=== PATIENT | female | born 1975 | race Caucasian/White ===

== ENCOUNTER → 2024-01-25 20:16 | Outpatient (REF) | payer OTHER, SELFPAY | LOC: MRI 20:16 | PROVIDERS: ATTENDING PHYSICIAN Family Medicine; FAMILY PHYSICIAN Student in an Organized Health Care Education/Training Program | DX: M54.50 Low back pain, unspecified (principal); M54.6 Pain in thoracic spine | CPT/HCPCS: 72158; A9575 ==

== ENCOUNTER 2025-07-14 22:58 | Emergency (ER) | payer SELFPAY ==
[2025-07-14 23:01] VITALS: BP 126/74
--- NOTE | 2025-07-14 23:11 | ED.GENMED ---
History of Present Illness
General
Chief Complaint: Flank Pain
Time Seen by Provider: 07/14/25 23:10
History of Present Illness
History of Present Illness:
FOCUSED PAST MEDICAL HISTORY
- Has had a partial hysterectomy, appendectomy
REVIEW OF OLD RECORDS
- Patient had screening colonoscopy 2022 which polyps were removed
Note:
CHIEF COMPLAINT(S)
- Right-sided flank pain
HISTORY OF PRESENT ILLNESS
The patient is a 50-year-old female who presents with right-sided flank pain that began suddenly a few days ago. The pain has progressively worsened, especially with movement of the thoracolumbar spine. She describes the pain as not involving her
upper back or chest. The patient reports having taken 800 mg of ogcd-ypu-ofqnlpb ibuprofen earlier today, but it did not provide significant relief. She also experiences significant nausea and has unintentionally lost approximately 23 pounds over
the past three weeks due to decreased appetite and nausea. She denies any fever. The patient has a history of hysterectomy and therefore has not had menstrual periods since the procedure.
PHYSICAL EXAM
General: Appears uncomfortable.
Skin: Warm, dry.
Head: Normocephalic, atraumatic.
Neck: Supple, trachea midline.
Eye, Ears, Nose, Mouth, and Throat: Oral mucosa moist.
Cardiovascular: Normal peripheral perfusion, no edema.
Respiratory: Respirations are non-labored.
Gastrointestinal: Abdomen nondistended, no significant tenderness upon palpation.
Back: Pain localized to the right flank region, worsened by movement of the thoracolumbar spine.
Musculoskeletal: Normal range of motion, normal strength.
Neurological: Alert and oriented to person, place, time, and situation, no focal neurological deficit observed.
Psychiatric: Cooperative, appropriate mood and affect.
PROBLEM LIST
- Acute: Right flank pain, nausea, unintentional weight loss
PLAN
The patient was given an intravenous nonsteroidal anti-inflammatory drug (Ketorolac, branded as Toradol) for pain management. Additionally, a computed tomography scan (CT scan) of the abdomen and pelvis has been ordered to further evaluate the cause
of her flank pain. Consideration for narcotic pain management should the nonsteroidal anti-inflammatory drug be inadequate.
DIFFERENTIAL DIAGNOSIS
The Differential Diagnosis includes, in no particular order and is not limited to:
1. Nephrolithiasis
2. Pyelonephritis
3. Musculoskeletal strain or injury
4. Radiculopathy
5. Appendicitis
6. Abdominal aortic aneurysm
7. Pancreatitis
8. Hepatic causes such as cholelithiasis
9. Gastrointestinal disorders
10. Urinary tract infection
RADIOLOGY
- No clear sign of ureteral stone on CT imaging
LABS
- CBC and chemistries unremarkable, urinalysis unremarkable
SUMMARY OF ENCOUNTER
The patient, a 50-year-old female, was seen in the emergency department due to severe right-sided flank pain that developed suddenly a few days prior. The patient also presented with significant nausea and unintended weight loss. A CT scan of the
abdomen and pelvis was performed without contrast, ruling out nephrolithiasis as there was no evidence of kidney stones. Urinalysis revealed no signs of a kidney or urinary tract infection. The patients white blood cell count was normal. The pain
appears predominantly musculoskeletal, likely due to inflamed tissue in the muscles or around the rib cage and possibly related to existing SI joint issues she receives PRP injections for. The patient has a history of colonoscopy showing small
polyps but nothing significant. Management included pain control consideration and addressing nausea with a prescribed medication. The patient was advised to follow up with her primary care provider and a regulatory intern, especially if
gastrointestinal symptoms persist. Additionally, it was recommended to consider agpd-guh-jlkmhoj omeprazole for potential acid-related irritation. She also had diarrhea.
ASSESSMENT
The source of flank pain is likely musculoskeletal or related to existing SI joint issues. Nausea is pronounced, and gastrointestinal evaluation is warranted due to weight loss and reported symptoms of diarrhea. Further investigation by a
regulatory intern has been advised.
EMERGENCY TREATMENTS ADMINISTERED
No emergency medications were administered in the ER, but a prescription for nausea medication was arranged for pick-up.
PLAN
A prescription for nausea medication will be sent to the patients pharmacy. The patient is advised to follow up with her primary care physician and a regulatory intern for further assessment and management. Lmhq-bqi-apfgsei omeprazole is
recommended for potential acid-related irritation.
INDEPENDENT REVIEW OF LABS AND INTERPRETATION OF TESTS
- My independent review of the CT abdomen/pelvis shows no signs of nephrolithiasis or bony abnormalities.
- My independent review of the urinalysis shows no signs of infection or hematuria.
- My independent review of the white blood cell count is normal.
PATIENT EDUCATION AND COUNSELING
The patient was informed about the possible musculoskeletal nature of her pain and the lack of findings suggesting kidney stones or a urinary tract infection. The potential for gastrointestinal issues contributing to nausea was discussed, and the
patient was advised about the utility of acid-reducing medication like omeprazole.
FOLLOW-UP INSTRUCTIONS
The patient should follow up with her primary care provider, and consider a consultation with a regulatory intern for further evaluation of gastrointestinal symptoms and weight loss.
MEDICATION RECONCILIATION
Prescribed medication for nausea was sent to the patients preferred pharmacy. Mrrs-tmy-aiaqpmb omeprazole was recommended for potential acid irritation.
MEDICAL DECISION MAKING
- Number and Complexity of Problems Addressed: Chronic conditions affecting care include nausea, right flank pain, musculoskeletal strain, SI joint pain.
- DDx list includes: Nephrolithiasis, pyelonephritis, musculoskeletal strain, radiculopathy, appendicitis, abdominal aortic aneurysm, pancreatitis, hepatic causes, gastrointestinal disorders, urinary tract infection.
-Data:
Category 1
- Lab tests (urinalysis, white blood cell count) were reviewed.
- CT scan of abdomen/pelvis was independently interpreted.
Category 3
- Discussion of management included in-house consultation and the determination to prescribe nausea medication and recommend gastrointestinal follow-up.
-Risk: Consideration of Admission/Observation: Escalation of care including admission/observation was considered given the complexity and risk of the patients presenting complaint, exam findings, and/or their underlying comorbidities. However,
ultimately it was felt the patient is safe for outpatient management with close follow up. Reasoning: Work-up reassuring, does not reveal any acute life/organ threatening processes, patients symptoms well controlled upon reevaluation, reexamination
is reassuring, vitals are stable, patient agreeable with discharge, reliable for follow-up.
DIAGNOSIS
- Musculoskeletal pain (M54.9)
- Nausea with vomiting (R11.2)
UPDATE
- Acute right flank pain that started abruptly
- However she has been having some ongoing nausea and reported weight loss however the albumin is normal
- White count and other labs are normal
- No sign of UTI or blood in urine
- She has a GI doctor that she can follow-up and also has pain management and I also recommend that she follows up PMD given the reported weight loss
Phy Exam
Physical Exam
Physical Exam:
See HPI
Sepsis
Sepsis Screening
Sepsis Assessment: Sepsis Ruled Out
Sepsis Screen
Sepsis Screen: Sepsis Ruled Out
Date: 07/15/25
Time: 01:19
Course
Orders/Labs/Results
Orders:
Orders
07/14/25 23:23
0.9% Sodium Chloride 1000 ml [Nss] 1,000 ml IV BOLUS
Ketorolac [Toradol] 15 mg IV NOW STA
07/14/25 23:31
Complete Blood Count/With Diff Urgent
Comprehensive Metabolic Panel Urgent
Lipase Urgent
Ondansetron Injectable [Zofran] 4 mg IV NOW STA
07/14/25 23:59
HYDROmorphone [Dilaudid] 1 mg IV NOW STA
07/15/25 00:00
CT Abd/pel Without Iv Or Oral Urgent
Reason For Exam: abrupt R flank pain; wt loss
HYDROmorphone [Dilaudid] 1 mg .ROUTE .STK-MED ONE
07/15/25 00:23
Urinalysis Reflex To Culture Urgent
Date Specimen was Collected: 07/15/25
Time Specimen was Collected: 00:22
Urine Microscopic Reflex Cult Urgent
Abnormal Lab Results
07/14/25 07/15/25
23:31 00:23
RBC 3.94 L 10^6/uL
(4.20-5.40)
MCHC 32.6 L g/dL
(33.0-37.0)
Absolute Lymphs (auto) 4.1 H 10^3/uL
(1.2-3.4)
BUN 24 H mg/dl
(7-17)
Urine Bacteria (Reflex) Few A
(Negative)
Urine Albumin (Reflex) 1+ A
(Neg - Trace)
07/14/25 23:31
07/14/25 23:31
Vital Signs
Initial and Last Documented VS:
Initial Vital Signs
Temp Pulse Resp BP Pulse Ox
36.5 C 76 22 126/74 98
07/14/25 23:01 07/14/25 23:01 07/14/25 23:01 07/14/25 23:01 07/14/25 23:01
Last Documented Vital Signs
Temp Pulse Resp BP Pulse Ox
36.5 C 74 18 115/75 98
07/14/25 23:01 07/15/25 00:20 07/15/25 00:20 07/15/25 00:20 07/15/25 00:20
*Pulse Oximetry
SaO2: 98
Oxygen Mode of Delivery: Room air
Patient hypoxic: no
*Critical Care Note
Total Time (30-74mins, 75-104mins- exclusive of procedures): Not Applicable
ED Attending Note
-
Portions of this chart may have been created with voice recognition software.� Occasional wrong word or��sound alike� substitutions may have occurred due to the inherent limitations of voice recognition software.
Discharge Plan
Departure
Patient Disposition: Home (Routine Discharge)
Date of Disposition: 07/15/25
Time of Disposition: 01:14
Patient with high blood pressure during this ER visit?: Yes
Discharge Problem:
Abdominal pain
Instructions: Abdominal Pain, Acute Nausea and Vomiting
Prescriptions:
New
ondansetron HCl 4 mg tablet
4 mg PO Q8H PRN (Reason: nausea and vomiting) Qty: 14 0RF
Referrals:
Adolph Pratt, DO [Family Provider, Family Practice]
Activity Restrictions/Additional Instructions:
Follow-up with your GI doctor as well as primary care. 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 Your basic blood work is normal. Urinalysis shows no sign of infection or blood in the urine. Return if worse or other concerns. I sent a
prescription for nausea medicine to your pharmacy. I also recommend a 2-week course of icqs-ewz-efnxjph omeprazole in case this could be related stomach acid as well.
Interventions
Interventions:
*Risk Screen - Suicide Last Done: 07/14/25 23:01
*General Assessment Last Done: 07/14/25 23:25
*Neglect/Abuse Screening Last Done: 07/14/25 23:01
*ED COVID-19 Vaccine History Last Done: 07/14/25 23:25
*ED Influenza Vaccine History Last Done: 07/14/25 23:25
[facility] Fall Risk Assessment Tool Last Done: 07/14/25 23:07
OZ-Abhspv-Vdzsosstzi Assessment Last Done: 07/14/25 23:28
ED-Female Genitourinary Assessment Last Done: 07/14/25 23:28
ED-Musculoskeletal Assessment Last Done: 07/14/25 23:28
Discharge Date and Time
Print Language: [id number]
[2025-07-14 23:25] VITALS: BMI 21.2
[2025-07-14] MEDS: ZOFRAN 4 MG IV (23:34)
[2025-07-14] MEDS: TORADOL 15 MG IV (23:34)
[2025-07-14] MEDS: NSS 1000 IV (23:34)
[2025-07-14 23:36] LABS: Hematocrit 37.4 % (37.0-47.0); Hemoglobin 12.2 g/dL (12.0-16.0); Mean Corp Hgb Conc. 32.6 g/dL (33.0-37.0); Mean Corpuscular Volume 94.9 fL (81.0-99.0); Nucleated Red Blood Cells % 0 %; Platelet Count 219 10^3/uL (130-400); Red Cell Dist. Width 12.6 % (11.5-14.5)
[2025-07-15] LABS: ALT (SGPT) 27 U/L (0-35); AST (SGOT) 18 U/L (14-36); Albumin 4.3 g/dl (3.5-5.0); Alkaline Phosphatase 72 U/L (38-126); Blood Urea Nitrogen 24 mg/dl (7-17); Calcium 9.2 mg/dl (8.4-10.2); Carbon Dioxide 25 mmol/L (22-30); Chloride 105 mmol/L (98-107); Estimated Creatinine Clearance 124 ml/min; Glucose 94 mg/dl (70-99); Lipase 113 U/L (23-300); Potassium 3.7 mmol/L (3.5-5.1); Sodium 136 mmol/L (135-145); Total Protein 6.6 g/dl (6.3-8.2); eGFR > 60.00
[2025-07-15] MEDS: DILAUDID 1 MG IV (00:02)
[2025-07-15 00:20] VITALS: BP 115/75
[2025-07-15 01:05] LABS: Urine Character Clear (Clear)
[2025-07-15 01:14] LABS: Urine Red Blood Cell 0-2 /HPF (0-2)
== END 2025-07-15 01:45 | disposition home or self-care (01) ==
LOC: EMR 22:58
PROVIDERS: EMERGENCY PHYSICIAN Emergency Medicine; FAMILY PHYSICIAN Family Medicine
DX: R10.A1 Flank pain, right side (principal); Z90.711 Acquired absence of uterus with remaining cervical stump; Z90.49 Acquired absence of other specified parts of digestive tract; R11.2 Nausea with vomiting, unspecified
CPT/HCPCS: 96374; 96375; 96361; 99284; 74176; 80053; 81003; 81015; 83690; 85025